=== PATIENT | female | born 1945 | race Two or more races ===

== ENCOUNTER 2019-06-26 07:00 | Inpatient (IN) | payer MEDICAID ==
[~2019-06-26] VITALS: Ht 152.4 cm; Wt 89.4 kg
[2019-06-26] MEDS ORDERED: CARV6.2548 MT (07:56)
[2019-06-26] MEDS ORDERED: CALC-25 MT (07:56)
[2019-06-26] MEDS ORDERED: FERR325T6 MT (07:56)
[2019-06-26] MEDS ORDERED: FOLI-43 MT (07:56)
[2019-06-26] MEDS ORDERED: SACU1TAB MT (07:56)
[2019-06-26] MEDS ORDERED: METH2.5T MT (07:56)
[2019-06-26] MEDS ORDERED: DOCU-150 MT (07:56)
[2019-06-26] MEDS ORDERED: SITA50TA3 MT (07:56)
[2019-06-26] MEDS ORDERED: ERGO500013 (07:56)
[2019-06-26] MEDS ORDERED: ALEN70SO3 PO (07:56)
[2019-06-26] MEDS ORDERED: GLIP5TAB12 MT (07:56)
[2019-06-26] MEDS ORDERED: CHOL400T31 (07:56)
[2019-06-26 08:47] LABS: HEMOGLOBIN 11.9 g/dL (12.0-16.0); MEAN CORPUSCULAR HEMOGLOBIN 28.6 pg (28.0-32.0); MEAN CORPUSCULAR VOLUME 84.6 fL (81.0-99.0); PLATELET 130 x1000/uL (130-400); RED BLOOD CELL COUNT 4.14 mill/uL (4.2-5.4); RED CELL DISTRIBUTION WIDTH 16.1 % (11.6-14.6)
[2019-06-26 08:55] LABS: INR 0.9; PARTIAL THROMBOPLASTIN TIME 26.6 sec (23.4-31.0); PROTHROMBIN TIME 10.2 sec (9.6-11.0)
[2019-06-26] MEDS ORDERED: INSULIN LISPRO 100 UNITS/ML SUBCUT NR ×2 (09:40→15:00)
[2019-06-26] MEDS ORDERED: LIDOCAINE HCL 1% 20ML VIAL (Pyxis) INJ ONE (11:41)
[2019-06-26] MEDS ORDERED: GENTAMICIN SULF 40MG/ML 2ML VIAL ONE (11:41)
[2019-06-26] MEDS ORDERED: GENTAMICIN/NS IRRIGATION 500 ML IR ONE (11:42)
[2019-06-26] MEDS ORDERED: IODIXANOL 320MG/ML 100 ML BOTTLE IV ONE (11:42)
[2019-06-26] MEDS ORDERED: SODIUM CHLORIDE 0.9% 10ML VIAL ONE (11:53)
[2019-06-26] MEDS ORDERED: CEFAZOLIN SODIUM 1000MG/VIAL ONE (11:53)
[2019-06-26] MEDS ORDERED: HYDRALAZINE 20MG/ML VIAL ONE (11:53)
[2019-06-26] MEDS ORDERED: MIDAZOLAM HCL 2 MG/2 ML VIAL ONE ×4 (12:00→14:14)
[2019-06-26] MEDS ORDERED: DIPHENHYDRAMINE 50MG/ML VIAL ONE (12:01)
[2019-06-26] MEDS ORDERED: FENTANYL CITRATE/PF 50MCG/ML 2ML VIAL ONE (12:01)
[2019-06-26] MEDS ORDERED: DEXTROSE 50% WATER 50ML SYRINGE IV PRN (14:45)
[2019-06-26 15:40] VITALS: BP 120/66
[2019-06-26 15:45] VITALS: BP 123/68
[2019-06-26 16:00] VITALS: BP 120/66
[2019-06-26] MEDS: BLOOD SUGAR DIAGNOSTIC STRIP TEST SCH ×2 (16:34→20:20)
[2019-06-26 18:00] VITALS: BP 144/77
[2019-06-26] MEDS: GLIPIZIDE 5MG TABLET PO SCH (18:01)
[2019-06-26] MEDS: DOCUSATE SODIUM 100MG CAPSULE PO SCH (18:01)
[2019-06-26] MEDS: INSULIN LISPRO 100 UNITS/ML SUBCUT SCH ×2 (18:02→20:21)
[2019-06-26] MEDS: CEFAZOLIN 1000MG PREMIX 50 ML IV SCH (19:37)
[2019-06-26] MEDS: HYDROCODONE/ACETAMINOPHEN 5/325MG TABLET PO PRN (19:57)
[2019-06-26 20:00] VITALS: BP 136/74
[2019-06-26] MEDS: CARVEDILOL 6.25 MG TABLET PO SCH (20:20)
[2019-06-26 22:00] VITALS: BP 119/59
[2019-06-27] VITALS (10 sets, daily range): BP systolic 105–155; BP diastolic 58–86
[2019-06-27] MEDS: CEFAZOLIN 1000MG PREMIX 50 ML IV SCH (03:53)
[2019-06-27] MEDS: GLIPIZIDE 5MG TABLET PO SCH (06:08)
[2019-06-27] MEDS: BLOOD SUGAR DIAGNOSTIC STRIP TEST SCH ×2 (06:08→12:47)
[2019-06-27 06:25] LABS: BASOPHILS % 0.6 % (0.0-2.0); EOSINOPHILS % 0.9 % (0.0-5.0); HEMATOCRIT. 32.1 % (36.0-48.0); HEMOGLOBIN. 11.1 g/dL (12.0-16.0); LYMPHOCYTES % 20.5 % (20.0-50.0); MEAN CORPUSCULAR HEMOGLOBIN 28.8 pg (28.0-32.0); MEAN CORPUSCULAR VOLUME 83.9 fL (81.0-99.0); MONOCYTES % 4.2 % (2.0-8.0); NEUTROPHILS % 73.8 % (40.0-76.0); PLATELET 159 x1000/uL (130-400); RED BLOOD CELL COUNT 3.83 mill/uL (4.2-5.4); RED CELL DISTRIBUTION WIDTH 15.6 % (11.6-14.6)
[2019-06-27] MEDS ORDERED: FOLIC ACID 1MG TABLET PO SCH (09:00)
[2019-06-27] MEDS ORDERED: CALCIUM CARBONATE 1250MG TABLET (500MG ELEMENTAL CALCIUM) PO SCH (09:00)
[2019-06-27] MEDS: DOCUSATE SODIUM 100MG CAPSULE PO SCH (09:40)
[2019-06-27] MEDS: CARVEDILOL 6.25 MG TABLET PO SCH (09:40)
[2019-06-27] MEDS: INSULIN LISPRO 100 UNITS/ML SUBCUT SCH ×2 (09:41→12:51)
[2019-06-27] MEDS: HYDROCODONE/ACETAMINOPHEN 5/325MG TABLET PO PRN (13:02)
== END 2019-06-27 15:23 | disposition home or self-care (01) | DRG 161 ==
LOC: CCL 07:00 → 3WST 16:12
PROVIDERS: ADMIT Internal Medicine Clinical Cardiac Electrophysiology; ATTEND Internal Medicine Clinical Cardiac Electrophysiology
PROC: 0JPT0PZ Removal of Cardiac Rhythm Related Device from Trunk Subcutaneous Tissue and Fascia, Open Approach (ICD-10-PCS; principal; 2019-06-26)
PROC: 02HL3KZ Insertion of Defibrillator Lead into Left Ventricle, Percutaneous Approach (ICD-10-PCS; 2019-06-26)
PROC: 0JH609Z Insertion of Cardiac Resynchronization Defibrillator Pulse Generator into Chest Subcutaneous Tissue and Fascia, Open Approach (ICD-10-PCS; 2019-06-26)
PROC: 4A023N6 Measurement of Cardiac Sampling and Pressure, Right Heart, Percutaneous Approach (ICD-10-PCS; 2019-06-26)
PROC: B51BYZZ Fluoroscopy of Right Lower Extremity Veins using Other Contrast (ICD-10-PCS; 2019-06-26)
PROC: 02HP32Z Insertion of Monitoring Device into Pulmonary Trunk, Percutaneous Approach (ICD-10-PCS; 2019-06-26)
DX: I11.0 Hypertensive heart disease with heart failure (principal); I42.8 Other cardiomyopathies; E11.9 Type 2 diabetes mellitus without complications; I50.23 Acute on chronic systolic (congestive) heart failure; I44.7 Left bundle-branch block, unspecified; Z87.891 Personal history of nicotine dependence; Z79.899 Other long term (current) drug therapy
CPT/HCPCS: 33225; 33241; 33249; 36415; 71045; 75820; 80048; 82962; 85025; 85027; 93005; 93451; 93640; C1731; C1769; C1882; C1887; C1892; C1893; C1898; C1900; J0360; J0690; J1200; J1580; J1644; J1815; J2250; J3010; J3490; Q9967